=== PATIENT | male | born 2005 | race Caucasian/White ===

== ENCOUNTER 2025-01-06 06:06 | Emergency (ER) | payer BC ==
[2025-01-06] MEDS: Ketorolac 30 MG/ML SDV IM ONE (06:36)
[2025-01-06] MEDS: Cyclobenzaprine 10 MG Tab PO ONE (06:36)
== END 2025-01-06 06:59 | disposition home or self-care (01) ==
LOC: FB.ED 06:06
DX: S43.402A Unspecified sprain of left shoulder joint, initial encounter (principal); X58.XXXA Exposure to other specified factors, initial encounter; Y93.67 Activity, basketball
CPT/HCPCS: 96372; 99283; A9270; J1885